=== PATIENT | female | born 1990 | race Caucasian/White ===

== ENCOUNTER 2019-08-12 09:34 | Inpatient (IN) ==
--- NOTE | 2019-08-11 10:49 | HISTORY AND PHYSICAL ---
HISTORY OF PRESENT ILLNESS: The patient 28-year-old white female, G3, P0, at 39 and 2/7 weeks, scheduled for a section due to breech presentation. The patient's care significant for gestational diabetes. She had a early ultrasound confirming her due date of 08/10/2019 and first trimester. The patient was noted early in the 3rd trimester to be breech, and we have been following since. The patient has been monitored twice weekly due to gestational diabetes which is controlled with metformin. PAST MEDICAL HISTORY: Significant for polycystic ovarian syndrome as well as the above-mentioned gestational diabetes. PAST SURGICAL HISTORY: She has had a D and C x2, dental surgery, tonsils and adenoids. PAST OB HISTORY: G3, P0, A2, spontaneous AB x2. 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 REVIEW OF SYSTEMS: All systems reviewed and noncontributory. FAMILY HISTORY: Significant for high blood pressure and breast cancer. SOCIAL HISTORY: Tobacco use: None. Alcohol use: None. MEDICATIONS: Metformin 500 mg b.i.d., Prometrium 200 mg daily, vitamins, and patient had been on a baby aspirin daily but has discontinued this as we approach her scheduled . PHYSICAL EXAMINATION: VITAL SIGNS: Height 5 feet 2 inches, weight 203 pounds. Blood pressure 124/71, pulse of 85, respirations 20. heart rate 130s. HEENT: Pupils equal, round, reactive to light and accommodation. Extraocular movements intact. Oropharynx clear. NECK: Supple. No thyromegaly. LUNGS: Clear to auscultation. HEART: Regular rate and rhythm. ABDOMEN: Gravid, nontender. On ultrasound, confirmed breech presentation. EXTREMITIES: Mild lower extremity edema was noted. DTRs were 2+ bilaterally. ASSESSMENT AND PLAN: This is a 28-year-old white female, G3, P0, at 39 and 2/7 weeks with breech presentation. Patient is scheduled for primary low-transverse . Patient counseled about the risks of surgery including bleeding, infection, bowel or bladder injury. The patient is scheduled for section on 08/12/2019. cc: Lewis Paniagua III, MD
[2019-08-12] MEDS ORDERED: REGLAN PO ONE (09:37)
[2019-08-12] MEDS ORDERED: LR 500 ML IV ONE (09:37)
[2019-08-12] MEDS ORDERED: KEFZOL 1 GM/D5W 1 GM/50 ML IVPB IV PRN (09:37)
[2019-08-12] MEDS ORDERED: PEPCID PO ONE (09:37)
[2019-08-12] MEDS ORDERED: KEFZOL 2 GM/D5W 2 GM/50 ML IVPB IV ONE (10:08)
[2019-08-12 10:36] LABS: URINE SOURCE VOIDED
[2019-08-12] MEDS: LR 1,000 ML IV SCH ×2 (10:39→10:55)
[2019-08-12 10:41] LABS: BASO# 0.01 X1000 (0.0-0.2); BASO% 0.1 % (0.0-0.8); EOS# 0.09 X1000 (0.0-0.7); EOS% 1.1 % (0.0-10.0); HEMATOCRIT 35.9 % (37.0-47.0); HEMOGLOBIN 12.2 g/dL (12.0-16.0); IMM GRAN# 0.07 X1000 (0.0-0.04); IMM GRAN% 0.8 % (0.0-0.5); LYMPH# 1.71 X1000 (1.2-3.4); LYMPH% 20.5 % (20.5-51.1); MCH 30.7 PG (27-31); MCV 90.4 FL (81-99); MONO# 0.51 X1000 (0.11-0.59); MONO% 6.1 % (1.7-9.3); MPV 10.7 FL (7.4-10.4); NEUT# 5.97 X1000 (1.4-6.5); NEUT% 71.4 % (42.2-75.2); PLT 170 X1000 (130-400); RBC 3.97 XMIL (4.2-5.4); RDW 12.8 % (11.5-14.5); WBC 8.36 X1000 (4.8-10.8)
[2019-08-12 11:03] LABS: BILIRUBIN URINE NEGATIVE (NEGATIVE); BLOOD URINE NEGATIVE (NEGATIVE); COLOR YELLOW; GLUCOSE URINE NEGATIVE (NEGATIVE); KETONE URINE 20 mg/dL (NEGATIVE); LEUKOCYTES URINE NEGATIVE (NEGATIVE); NITRITE URINE NEGATIVE (NEGATIVE); PROTEIN URINE NEGATIVE (NEGATIVE); SP GRAVITY URINE 1.012; TURBIDITY URINE HAZY (CLEAR); UROBILINOGEN URINE NORMAL (NORMAL)
[2019-08-12] MEDS ORDERED: BICITRA ONE (11:12)
[2019-08-12] MEDS ORDERED: DURAMORPH ONE ×2 (11:40→11:53)
[2019-08-12] MEDS ORDERED: NEO-SYNEPHRINE ONE (11:53)
[2019-08-12] MEDS ORDERED: SODIUM CHLORIDE 0.9% 10 ML ONE (11:53)
[2019-08-12] MEDS ORDERED: ZOFRAN ONE (11:53)
[2019-08-12] MEDS ORDERED: ROBINUL ONE (11:53)
[2019-08-12] MEDS ORDERED: VERSED ONE (12:25)
[2019-08-12] MEDS ORDERED: PITOCIN ONE ×2 (12:33)
[2019-08-12] MEDS ORDERED: BOOSTRIX VACCINE IM ONE (12:52)
[2019-08-12] MEDS ORDERED: PITOCIN IM PRN (12:52)
[2019-08-12] MEDS ORDERED: PHENERGAN IM PRN ×2 (12:52→12:53)
[2019-08-12] MEDS ORDERED: PITOCIN 20 UNITS/NS 20 UNITS/1,000 ML IV.SOLN IV ONE ×2 (12:52→12:53)
[2019-08-12] MEDS ORDERED: DEMEROL IM PRN ×2 (12:52→12:53)
[2019-08-12] MEDS ORDERED: MOTRIN PO PRN (12:52)
[2019-08-12] MEDS ORDERED: ATARAX PO PRN (12:52)
[2019-08-12] MEDS ORDERED: DULCOLAX PR PRN ×2 (12:52→12:53)
[2019-08-12] MEDS ORDERED: DEMEROL PO PRN ×3 (12:52→12:53)
[2019-08-12] MEDS ORDERED: HYDROXYZINE IM PRN (12:52)
[2019-08-12] MEDS ORDERED: M-M-R II VACCINE SUBQ ONE (12:52)
[2019-08-12] MEDS ORDERED: AMBIEN PO PRN ×2 (12:52→12:53)
[2019-08-12] MEDS ORDERED: MYLICON PO SCH (13:00)
[2019-08-12] MEDS ORDERED: PITOCIN 10 UNITS/NS 1,000 ML IV SCH (13:00)
[2019-08-12] MEDS: PITOCIN 10 UNITS/NS 1,000 ML IV SCH ×2 (14:34→22:22)
[2019-08-12] MEDS ORDERED: ZOFRAN IV PRN ×2 (15:00)
[2019-08-12] MEDS ORDERED: ZOFRAN ODT PO PRN (15:00)
[2019-08-12] MEDS ORDERED: NARCAN INJ PRN (15:00)
[2019-08-12] MEDS ORDERED: BENADRYL IV PRN (15:00)
--- NOTE | 2019-08-12 15:48 | OPERATIVE NOTE ---
PROCEDURE DATE: 08/12/2019 PREOP DIAGNOSIS: Intrauterine 39-2/7 weeks with breech presentation for primary low- transverse section. POSTOP DIAGNOSIS: Intrauterine 39-2/7 weeks with breech presentation for primary low- transverse section with operative delivery of a male infant, 7 pounds 11 ounces with Apgars of 8 and 9 at 12:18 on 08/12/2019. PROCEDURE: Primary low-transverse section. SURGEON: Lewis Paniagua III, MD. ASSIST: Dr. Gutierrez. ANESTHESIA: Spinal, Dr. Bowles. FINDINGS: Normal-appearing uterus, tubes, and ovaries. Lina breech presentation upon entry into the uterine cavity, double nuchal cord was noted and reduced easily at time of . COMPLICATIONS: None. ESTIMATED BLOOD LOSS: 700 mL. SPECIMENS REMOVED: None. DRAINS: Mc to straight drain. COUNTS: All counts were correct x3. INDICATIONS: Patient is a 28-year-old white female, G3, P0, A2 at 39-2/7 weeks with breech presentation for primary low-transverse . Patient counseled about the risks of surgery including bleeding, infection, bowel or bladder injury. DESCRIPTION OF PROCEDURE: Patient was taken to labor and delivery OR. Spinal anesthesia was placed. She was placed in supine position with a roll under right hip. She was then prepped and draped in a sterile fashion with placement Mc catheter. Adequate anesthesia was noted by using Allis clamps on skin then a Pfannenstiel skin incision was made on lower abdomen using a scalpel. This was taken down sharply to the fascia layer. Small wolf was made in the rectus fascia. Fascial incision was extended by curved Pruitt scissors bilaterally and then blunt and sharp dissection for superior and inferior aspects of the rectus fascia was performed. Rectus muscles divided midline. Peritoneal layer was entered bluntly. The peritoneal incision was extended superiorly and inferiorly with care taken to avoid the bladder. Bladder reflection was created using Metzenbaum scissors and bladder blade was placed into the abdominal cavity at this point in time. A transverse incision was made on lower uterine segment using scalpel. This was then extended bilaterally by the surgeon's fingers. Clear fluid was noted upon entry into the hysterotomy site and the lina breech presentation was noted. buttocks was elevated out of the hysterotomy incision and the legs were then removed then the arms were gently removed. The head was then delivered atraumatically and double nuchal cord was reduced easily at this point in time. Umbilical cord was clamped twice and cut. handed to nursery nurse in attendance for delivery. The cord blood sample was obtained at this time. Placenta was then manually extracted. Uterus was then exteriorized. Wet lap was placed around the uterus. Dry lap was then used to curette the uterine cavity of clots and debris. Uterine incision was then closed using 0 chromic in a running locking fashion x1. Area of oozing noted the midline and a figure-of- eight stitch was then placed of 0 chromic and good hemostasis was noted. At this point in time, the posterior cul-de-sac was irrigated copiously. The uterus was then replaced back into the abdominal cavity and the pericolic gutters were cleansed using moist lap sponges. The bladder blade was placed back in and inspection of the uterine incision and bladder reflection was performed and good hemostasis was noted. The peritoneal layer was then closed using 2-0 chromic in a running fashion x1 then interrupted stitches of 2-0 chromic were used to reapproximate the rectus muscle. The fascia layer was then closed using 0 PDS in a running fashion x1. Subcutaneous layer was then irrigated. Electrocautery was used to obtain hemostasis and the skin was then reapproximated using vlad. The patient tolerated the procedure well, was taken to recovery room in stable condition. All counts were correct x3. cc: Lewis Paniagua III, MD
[2019-08-12] MEDS: TORADOL IV SCH ×2 (18:32→18:33)
[2019-08-12] MEDS ORDERED: PERICOLACE PO SCH (21:00)
[2019-08-12] MEDS: PERICOLACE PO SCH (21:41)
[2019-08-13] MEDS: TORADOL IV SCH ×2 (00:48→06:14)
[2019-08-13 06:13] LABS: BASO# 0.01 X1000 (0.0-0.2); BASO% 0.1 % (0.0-0.8); EOS# 0.09 X1000 (0.0-0.7); HEMATOCRIT 30.6 % (37.0-47.0); HEMOGLOBIN 10.1 g/dL (12.0-16.0); IMM GRAN# 0.04 X1000 (0.0-0.04); IMM GRAN% 0.5 % (0.0-0.5); LYMPH% 17.1 % (20.5-51.1); MCH 30.4 PG (27-31); MCV 92.2 FL (81-99); MONO# 0.77 X1000 (0.11-0.59); MONO% 8.8 % (1.7-9.3); MPV 10.6 FL (7.4-10.4); NEUT# 6.36 X1000 (1.4-6.5); NEUT% 72.5 % (42.2-75.2); PLT 179 X1000 (130-400); RBC 3.32 XMIL (4.2-5.4); RDW 12.8 % (11.5-14.5); WBC 8.77 X1000 (4.8-10.8)
[2019-08-13] MEDS: DEMEROL PO PRN ×2 (10:40→16:40)
[2019-08-13] MEDS: MOTRIN PO PRN ×2 (10:40→20:19)
[2019-08-13] MEDS: MYLICON PO PRN ×2 (10:50→21:02)
[2019-08-13] MEDS: FERROUS SULFATE PO SCH (10:50)
[2019-08-13] MEDS ORDERED: LR 1,000 ML IV SCH ×2 (12:52→12:53)
[2019-08-13] MEDS ORDERED: PERCOCET-5 PO PRN (19:31)
[2019-08-13] MEDS: PERICOLACE PO SCH (20:18)
[2019-08-13] MEDS: PERCOCET-10 PO PRN (20:19)
[2019-08-13] MEDS ORDERED: NEOSPORIN OINTMENT TUBE TOP SCH (21:00)
[2019-08-14] MEDS: PERCOCET-10 PO PRN ×2 (02:36→09:30)
[2019-08-14] MEDS: MOTRIN PO PRN (04:17)
[2019-08-14 08:11] VITALS: BP 125/75
[2019-08-14] MEDS: FERROUS SULFATE PO SCH (08:13)
--- NOTE | 2019-08-14 09:11 | DISCHARGE SUMMARY ---
ADMISSION DATE: 08/12/2019 DISCHARGE DATE: 08/14/2019 ADMISSION DIAGNOSIS: Intrauterine 39 and 2/7 weeks with breech presentation. FINAL DIAGNOSES: 1. Intrauterine 39 and 2/7 weeks with breech presentation. 2. Operative delivery of a male infant, 7 pounds 11 ounces with Apgars of 8 and 9 at 12:18 on 08/12/2019. PROCEDURES: Primary low-transverse section. BRIEF HISTORY: Patient is a 28-year-old white female, G3, P0, at 39 and 2/7 weeks, scheduled for due to breech presentation. The patient's care significant for gestational diabetes. She had an early ultrasound confirming due date of 08/10/2019 with dating and first trimester ultrasound. The patient was noted in early 3rd trimester to be breech presentation and has been followed since then and noted to continue breech. Patient has been monitored twice weekly due to gestational diabetes which is well controlled with metformin 500 mg b.i.d. PAST MEDICAL HISTORY: Significant for polycystic ovarian syndrome, as well as the above-mentioned gestational diabetes. PAST SURGICAL HISTORY: She had a D C x2, dental surgery, as well as tonsils and adenoids. PAST OB HISTORY: G3, P0, A2, spontaneous AB x2. 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 REVIEW OF SYSTEMS: All systems reviewed and noncontributory. FAMILY HISTORY: Significant for high blood pressure and breast cancer. SOCIAL HISTORY: Tobacco use, none. Alcohol use, none. MEDICATIONS: Metformin b.i.d., Prometrium 200 mg daily, vitamins, and the patient had been on baby aspirin during her course and was discontinued a week before her section. PHYSICAL EXAMINATION: Vital Signs: Height 5 feet 2 inches, weight 203 pounds. Blood pressure 124/71, pulse of 85, respirations 20. heart rate in the 130s. HEENT: Pupils equal, round, reactive to light accommodation. Extraocular movements intact. Oropharynx clear. Neck: Supple. No thyromegaly. Lungs: Clear to auscultation. Heart: Regular rate and rhythm. Abdomen: Gravid, nontender. Breech presentation was confirmed with ultrasound. Extremities: Mild lower extremity edema. DTRs were 2+ bilaterally. ASSESSMENT AND PLAN: A 28-year-old white female, G3, P0, A2 at 39 and 2/7 weeks with breech presentation. The patient is scheduled for a primary low transverse . Patient counseled about the risks of surgery including bleeding, infection, bowel or bladder injury. HOSPITAL COURSE: The patient had operative delivery of a male infant, 7 pounds 11 ounces with Apgars of 8 and 9 at 12:18 on 08/12/2019. Anesthesia was spinal by Dr. Bowles and patient did well postoperatively. Was advanced on her diet as tolerated. Had good urine output. Hemoglobin was 10.1 postop and hematocrit was 30.6 postop. She had good vital signs and was afebrile. On postop day #2, she was ambulating, eating, tolerating oral medication, and also had positive flatus. It was felt at this time patient could be discharged home. DISCHARGE INSTRUCTIONS: Patient is to follow up in 1 week for staple removal. Patient instructed on pelvic rest and lifting precautions for 6 weeks. Patient to call for a temperature greater than 101, heavy vaginal bleeding, or severe abdominal pain. DISCHARGE MEDICATIONS: Patient be given Percocet 10, dispense 20 with no refills, Motrin 800 mg, dispensed 30 with 1 refill, Colace 100 mg, dispensed 30 with 1 refill, and iron sulfate 325 mg, dispensed 30 with 1 refill. The patient is also to continue her vitamins while she is . cc: Lewis Paniagua III, MD
[2019-08-14] MEDS: MYLICON PO PRN (09:30)
== END 2019-08-14 11:55 | disposition home or self-care (01) | DRG 788 ==
LOC: LD 09:34
PROVIDERS: ADMIT Obstetrics & Gynecology; ATTEND Obstetrics & Gynecology